=== PATIENT | female | born 1980 | race African-American/Black ===

== ENCOUNTER 2024-07-31 22:11 | Emergency (ER) | payer MEDICAID, OTHER ==
[~2024-07-31] VITALS: Ht 165.1 cm; Wt 78.0 kg
[~2024-07-31 22:11] MED LIST: MACROBID; PRENATAL VIT
[2024-07-31 22:27] VITALS: O2SAT 98
[2024-08-01] MEDS ORDERED: NAPR-1176 MT (00:39)
[2024-08-01 01:06] VITALS: BP 127/83; PULSE 74; RESP 16; TEMP 36.7; O2SAT 98
== END 2024-08-01 01:08 | disposition home or self-care (01) ==
LOC: ER 22:11
DX: M25.561 Pain in right knee (principal)
CPT/HCPCS: 99284; 29505; 93971; A6449